=== PATIENT | female | born 1950 | race Caucasian/White ===

== ENCOUNTER 2018-10-05 11:58 | Outpatient (CLI) | payer MEDICARE, OTHER ==
[~2018-10-05] VITALS: Ht 160 cm; Wt 89.3 kg
[~2018-10-05 11:58] MED LIST: ACTIGALL 300MG300 MG; ALTOPREV40 MG PO; CENTRUM1 TA1 PO; CORAL CALCIUM1 POW; CYMBALTA 20MG20 MG PO; FOSAMAX 70MG TA70 MG PO; IBU800 M1 PO; MICROZIDE12.5 MG; NEXIUM 40MG40 MG PO; TENORMIN 2525 MG/TAB PO; VITAMIN D32000 IU PO; VITAMIND3 5000 PO
[2018-10-05 12:30] VITALS: BP 147/82; PULSE 73; TEMP 98
[2018-10-05] MEDS ORDERED: FERROUS SU325 MG/TAB PO (13:39)
[2018-10-05] MEDS ORDERED: ASPIRIN E.C. 8181 MG PO (13:39)
[2018-10-05] MEDS ORDERED: B-12 500 MCG (13:40)
[2018-10-05 14:26] VITALS: BP 146/68; PULSE 68
--- NOTE | 2018-10-05 14:28 | NUR ---
ALL MEDICATIONS GIVEN WITH VERBAL ORDER AND READBACK WITH MD. SEE MERGE FOR ALL MEDICATION ADMIN TIMES. SEE MERGE FOR ALL RASS ASSESSMENTS DURING AND POST PROCEDURE.
[2018-10-05] MEDS ORDERED: CEPHALEXIN500 M1 PO (14:51)
[2018-10-05 15:00] VITALS: BP 125/54; PULSE 69; TEMP 97.4
[2018-10-05 15:15] VITALS: BP 127/73; PULSE 72
--- NOTE | 2018-10-05 15:35 | NUR ---
REVIEWED DISCHARGE INST. WITH PT, WILL PICKUP NEW RX. WILL MAKE APPT WITH PCP DR DUNCAN FOR 1 WEEK TO CHECK SITE, SITE HAS 1 STITCH IN IT ALSO. PT DISCHARGED WITH EQUIPMENT AND INST. SHEET VIA W/C TO TRUCK WITH
== END 2018-10-05 15:35 | disposition home or self-care (01) ==
LOC: COL.CAR 11:58
DX: R55 Syncope and collapse (principal); I25.10 Atherosclerotic heart disease of native coronary artery without angina pectoris; I10 Essential (primary) hypertension; E78.2 Mixed hyperlipidemia; I34.9 Nonrheumatic mitral valve disorder, unspecified; Z88.3 Allergy status to other anti-infective agents; Z88.5 Allergy status to narcotic agent; Z88.8 Allergy status to other drugs, medicaments and biological substances
CPT/HCPCS: C1764; J0690; J2250; J3010